=== PATIENT | female | born 1990 | race American Indian/Alaskan Native ===

== ENCOUNTER 2017-04-29 07:15 | Day surgery (SDC) | payer BC ==
[~2017-04-29] VITALS: Ht 157.5 cm; Wt 64.4 kg
[~2017-04-29 07:15] MED LIST: BCP'S
[2017-04-29] MEDS ORDERED: ORTHO TRI-CYCL1 EACH PO (07:30)
--- NOTE | 2017-04-29 09:02 | NUR ---
04/29/17 0902 Evelyn Gonzalez 0857 PATIENT ARRIVES TO PACU SLEEPING, OPENS EYES TO VERBAL STIMULI, ANSWERS QUESTIONS APPROPRIATELY, THEN BACK TO SLEEP. RESP EVEN AND UNLABORED. NC AT 3 LITERS.
--- NOTE | 2017-05-02 08:11 | OR ---
[facility] [address] [place], [place] [address] Signed DATE OF OPERATION: 04/29/2017 SURGEON: Gio Harvey MD PREOPERATIVE DIAGNOSIS: Rectal bleeding. POSTOPERATIVE DIAGNOSIS: Proctocolitis (distal sigmoid colon and rectum) PROCEDURE: Colonoscopy with cold biopsies in the cecum, right colon, transverse colon, 35 cm, 25 cm, and upper middle and distal rectum. ESTIMATED BLOOD LOSS: None. INDICATIONS: Pamela is a 26-year-old female, who has had rectal bleeding particularly with bowel movements the last 6 to 7 months. She said it is not every day, but it has been increasing in frequency. It is causing her more and more issues particular at work. She said there is no pain. There is no constipation, no diarrhea. Her guaiac test was positive. Therefore, she was asked to see me for colonoscopy. In the office, I gave Pamela a pamphlet on colonoscopy and we looked at that together along with the risks including, but not limited to, gas bloating, crampy abdominal pain, bleeding, perforation, requiring surgery, and missed diagnosis. We also discussed the need for IV conscious sedation. She had expressed understanding and wished to proceed. PROCEDURE NOTE: Pamela was taken into our endoscopy suite and placed in the left lateral decubitus position. She was given divided doses of 7 mg of Versed and 175 mcg of fentanyl. A digital rectal exam was performed and this was unremarkable. The adult colonoscope was inserted and we immediately encountered mild diffuse erythema starting at the anus and traveling up through the rectum. We took biopsies in the distal middle and upper rectum. The scope was then passed around the rectosigmoid junction and into the sigmoid colon. It also had similar inflammatory changes. As we traveled up into the left colon, those changes disappeared and the mucosa looked normal all around to the cecum. Her prep was quite excellent. We could see the ileocecal valve and appendiceal orifice. We made several attempts to pass the scope into the ileum without success. We then took our biopsies randomly as we withdrew the scope through the colon in the cecum, Electronically Signed By: GIO HARVEY MD 05/02/17 0811 PATIENT NAME: PAMELA DUDLEY OPERATIVE REPORT DATE OF : 89 PHYSICIAN: GIO HARVEY MD REPORT #: [id number] REPORT IS CONFIDENTIAL AND NOT TO BE RELEASED WITHOUT AUTHORIZATION [facility] [address] [place] [id number] Signed right colon, transverse colon, 35 cm and 25 cm. We also took pictures throughout for photodocumentation. Pamela's slight of build and we had just enough room to retroflex the scope and we could not see too much other than some mild inflammation in the distal portion of the rectum. After this, the gas was suctioned out and the colonoscope removed. Pamela tolerated the procedure quite well. RECOMMENDATIONS: I will see Pamela back in my office in 7 to 14 days to review her results. Gio Harvey MD ALB/MODL /[id number] cc: KIMBERLY Lancaster MD Electronically Signed By: GIO HARVEY MD 05/02/17810 PATIENT NAME: PAMELA DUDLEY Joanna OPERATIVE REPORT DATE OF : 89 PHYSICIAN: GIO HARVEY MD REPORT #: [id number] REPORT IS CONFIDENTIAL AND NOT TO BE RELEASED WITHOUT AUTHORIZATION
== END 2017-04-29 09:30 | disposition home or self-care (01) ==
LOC: DS 07:15 → OPS 07:15 → DS 08:15 → OPS 08:15
PROVIDERS: Colon & Rectal Surgery
PROC: 0DBE8ZX Excision of Large Intestine, Via Natural or Artificial Opening Endoscopic, Diagnostic (ICD-10-PCS; 2017-04-29)
PROC: 0DBL8ZX Excision of Transverse Colon, Via Natural or Artificial Opening Endoscopic, Diagnostic (ICD-10-PCS; 2017-04-29)
PROC: 0DBP8ZX Excision of Rectum, Via Natural or Artificial Opening Endoscopic, Diagnostic (ICD-10-PCS; 2017-04-29)
PROC: 0DBF8ZX Excision of Right Large Intestine, Via Natural or Artificial Opening Endoscopic, Diagnostic (ICD-10-PCS; 2017-04-29)
PROC: 0DBH8ZX Excision of Cecum, Via Natural or Artificial Opening Endoscopic, Diagnostic (ICD-10-PCS; principal; 2017-04-29 08:15)
DX: K51.211 Ulcerative (chronic) proctitis with rectal bleeding (principal); Z79.899 Other long term (current) drug therapy
CPT/HCPCS: 84703; 99153; G0500; J2250; J3010; J7120

== ENCOUNTER 2019-08-30 08:05 | Inpatient (IN) | payer OTHER ==
[~2019-08-30] VITALS: Ht 132.1 cm; Wt 75.0 kg
--- NOTE | ~2019-08-30 | OR ---
[facility] [address] [place], [place] [address] Draft DATE OF OPERATION: 08/30/2019 SURGEON: Rell Chacon DO PREOPERATIVE DIAGNOSES: 1. Term intrauterine . 2. Active labor. 3. Breech presentation. POSTOPERATIVE DIAGNOSES: 1. Term intrauterine . 2. Active labor. 3. Breech presentation. PROCEDURE PERFORMED: Primary low transverse delivery. REWINDER OPERATOR HELPER: Jeana Esquivel MD ESTIMATED BLOOD LOSS: 500 mL. FINDINGS: Viable female , 6 pounds 1 ounc with Apgars of 9 and 9. Born in a babatunde breech position. Normal uterus, tubes, and ovaries. ANESTHESIA: Spinal. COMPLICATIONS: None. INDICATIONS: Ms. Dudley is a very pleasant 29-year-old, G1, P0, who presents to Labor and Delivery complaining of contractions increasing in frequency and intensity. She is admitted to Labor and delivery. The patient quickly advanced to 8 cm dilated with a large bulge back. Artificial rupture of membranes was performed and at that point, it was noted the baby was in the babatunde breech presentation. Decision was made to proceed with primary low transverse delivery. Risks, benefits, and alternatives were discussed in PATIENT NAME: KEHINDE DUDLEY OPERATIVE REPORT DATE OF : [birth year] REPORT #: [id number] PHYSICIAN: RELL CHACON DO PCP: OLMAN ABRAHAM REPORT IS CONFIDENTIAL AND NOT TO BE RELEASED WITHOUT AUTHORIZATION [facility] [address] [place], [place] [address] Draft detail with the patient. The patient understands and wished to proceed with the procedure. TECHNIQUE: The patient was taken to the operating room, where a time-out was performed to confirm correct patient and correct procedure. Spinal anesthetic was adequately established. The patient was prepped and draped in the supine position with a bump under the right hip. Ancef 2 g were given preoperatively and no preop heparin was indicated. Once spinal was noted to be adequate, a Pfannenstiel skin incision was made 2 cm above the pubic symphysis and the incision was extended to the fascia. Fascia was nicked in the midline and fascial incision was extended bilaterally using blunt dissection. The fascia was grasped with Heaven's, elevated, and the underlying rectus muscles dissected off bluntly and sharply. Rectus muscles were divided in the midline and peritoneum was entered bluntly. Peritoneal incision was extended using blunt dissection and the lower uterine segment was identified. Chalo self retractor was placed and hysterotomy was performed using a surgical scalpel. Amniotic fluid was noted to be cleared. The buttocks were easily delivered with the assistance of fundal pressure and the baby was delivered up to the axilla. The anterior shoulder was swept medially and delivered. The baby was rotated to swept medially and the arm delivered. The baby was then rotated occiput anterior. The head flexed and rotated. The baby easily delivered. The was vigorous and cried and the cord was doubly clamped and cut. Cord blood obtained for routine analysis. The placenta was manually expressed, intact with . Uterus was cleared of any remaining products of conception was given per protocol. hysterotomy was repaired using 0 Vicryl in 2 layers with good hemostasis. Normal uterus, tubes, and ovaries. After the pelvis was irrigated and found to be hemostatic. Peritoneum was reapproximated using 2-0 Vicryl. Rectus was hemostatic and reapproximated with 0 Vicryl in a loose and using 0 Vicryl in a running nonlocked manner. Rell Chacon DO JDW/MODL /[id number] Copies: PATIENT NAME: KEHINDE DUDLEY OPERATIVE REPORT DATE OF : [birth year] REPORT #: [id number] PHYSICIAN: RELL CHACON DO PCP: OLMAN ABRAHAM REPORT IS CONFIDENTIAL AND NOT TO BE RELEASED WITHOUT AUTHORIZATION [address] [place] [address] Draft ~ PATIENT NAME: KEHINDE DUDLEY OPERATIVE REPORT DATE OF : [birth year] REPORT #: [id number] PHYSICIAN: RELL CHACON DO PCP: OLMAN ABRAHAM REPORT IS CONFIDENTIAL AND NOT TO BE RELEASED WITHOUT AUTHORIZATION
[~2019-08-30 08:05] MED LIST changes: +ORTHO TRI-CYCL1 EACH PO
--- NOTE | 2019-08-30 12:22 | PR ---
[facility] [address] [facility] [place], [place] [address] Signed Progress Notes IP Datetime Report Generated by CPN: 08/30/2019 12:22 PROGRESS NOTES: [id number] Impression: Normal progression of labor Plan: Continue present management Other Plans: Pt considering epidural VITAL SIGNS: [id number] Vital Signs: Reviewed; Within Normal Limits EXAM: [id number] Dilatation: 4.5 Effacement: 100 Station: -3 Uterine Contractions: Not tracing well MEMBRANES: [id number] Comments: Pt seen and evaluated. RN just checked cervix and pt getting in tub. Considering epidural in the near future. Reviewed labor and anticipated course. Pt will likely get epidural soon and then consider AROM. All questions answered Fetus A: [id number] FHR Baseline: 140 Variability: Moderate 6-25bpm Accelerations: None Decelerations: None FHR Category: Category I Presentation: Vertex Comments on Fetus A: No evidence of metabolic acidosis Fetus B: [id number] Signing Physician: Rell Chacon DO Copies: ~ *Electronically Signed* 08/30/19 1222 RELL CHACON DO PATIENT NAME: TRACEY DUDLEYISTI CHIP PROGRESS NOTE DATE OF : 89 PHYSICIAN: RELL CHACON DO RPT #: [id number] REPORT IS CONFIDENTIAL AND NOT TO BE RELEASED WITHOUT AUTHORIZATION
--- NOTE | 2019-08-30 14:40 | PR ---
[facility] [facility] [address] [place], [place] [address] Signed Progress Notes IP Datetime Report Generated by IVY: 08/30/2019 14:40 PROGRESS NOTES: [id number] Impression: Normal progression of labor; Reassuring heart rate Procedures: Artificial ROM; Sterile Vag Exam; Ultrasound Plan: Deliver- Section Other Plans: Pt considering epidural Informed Consent Obtain: Section Delivery; Risks, Benefits and Alternatives Discussed VITAL SIGNS: [id number] Vital Signs: Reviewed; Within Normal Limits EXAM: [id number] Dilatation: 8.0 Effacement: 100 Station: -3 Uterine Contractions: q 2-3 MEMBRANES: [id number] Comments: Pt seen and examined. Pt requested epidural which was kindly placed by anesthesia. Pt now much more comfortable w/ contractions. Discussed AROM. Large bulging membranes noted. Presenting part well applied. AROM then performed without difficulty for large amount clear fluid. Immediately on rupture, it was noted that presenting part is buttocks. US was performed that confirmed breech presentation. Reviewed recommendation for primary C/S for breech presentation. Pt understands and agrees. Consents signed. Reviewed risks/benefits and alternatives. All questions answered to best of my ability and to pts apparent understanding. Reviewed that pt would be an excellent candidate for in the future. Fetus A: [id number] FHR Baseline: 150 Variability: Moderate 6-25bpm Accelerations: None Decelerations: None FHR Category: Category I Presentation: Breech Comments on Fetus A: No evidence of metabolic acidosis Fetus B: [id number] Signing Physician: Rell D. Chacon, DO Copies: *Electronically Signed* 08/30/19 1440 CHACON,RELL Reese DO PATIENT NAME: KEHINDE DUDLEY PROGRESS NOTE DATE OF : [birth year] PHYSICIAN: RELL CHACON DO RPT #: [id number] REPORT IS CONFIDENTIAL AND NOT TO BE RELEASED WITHOUT AUTHORIZATION [facility] [address] [place], [place] [address] Signed ~ *Electronically Signed* 08/30/19 144 CHACON,RELL Reese DO PATIENT NAME: KEHINDE DUDLEY PROGRESS NOTE DATE OF : [birth year] PHYSICIAN: RELL CHACON DO RPT #: [id number] REPORT IS CONFIDENTIAL AND NOT TO BE RELEASED WITHOUT AUTHORIZATION
--- NOTE | 2019-08-30 15:53 | NUR ---
08/30/19 1553 Jeanine Juarez 1541-PATIENT ARRIVED TO ROOM 105 FOR PACU AWAKE DENIES PAIN OR NAUSEA. REPORTS "TIRED". RA RR EVEN IVF INFUSING 20 PITOCIN WITH LR TO LEFT HAND CDI. SPINAL LEVEL AT T7. BROWN CATHETER DRAINING CLEAR YELLOW URINE. SR. AT BEDSIDE. FUNDUS AT UMBILICUS FIRM LIGHT RUBRA DRAINAGE. 1552-BABY TO PATIENTS BREAST FBC WALTER ALMAGUER AT BEDSIDE ASSISTING.
--- NOTE | 2019-08-31 08:57 | PR ---
[facility] [address] [facility] [place], [place] [address] Signed PP Progress Notes Datetime Report Generated by CPN: 08/31/2019 08:57 SUBJECTIVE: [id number] Pain: Within normal limits Nausea/Vomiting: Denies Flatus: Yes Vital Signs: [id number] Vital Signs: Reviewed; Within Normal Limits EXAM: [id number] Cardiovascular: Normal Respiratory: Normal Abdomen/Uterus: Normal Lochia: Normal Vulva/Perineum: Not Done Breasts: Not Done CVA Tenderness: Normal Extremities: Normal Incision: Normal Progress: Normal Exam Comments: Incision well healing. Fundus firm U-2 IMPRESSION/PLAN/PROCEDURES: [id number] Impression: Normal progression Plan: Continue present management Progress Notes: Pt seen and examined. Doing well. Lowry cath in place and has not yet ambulated. Tolerating diet. Pain and lochia minimal. well. No fevers/chills or other concerns. Hgb 10.6. Anticipate d/c home tomorrow Signing Physician: Rell Chacon DO Copies: ~ *Electronically Signed* 08/31/19 0857 RELL CHACON DO PATIENT NAME: KEHINDE DUDLEY PROGRESS NOTE DATE OF : [birth year] PHYSICIAN: RELL CHACON DO RPT #: [id number] REPORT IS CONFIDENTIAL AND NOT TO BE RELEASED WITHOUT AUTHORIZATION
--- NOTE | 2019-09-01 07:42 | PR ---
[facility] [address] [facility] [place], [place] [address] Signed PP Progress Notes Datetime Report Generated by CPN: 09/01/2019 07:42 SUBJECTIVE: [id number] Pain: Within normal limits Nausea/Vomiting: Denies Flatus: Yes Vital Signs: [id number] Vital Signs: Reviewed EXAM: [id number] Cardiovascular: Normal Respiratory: Normal Abdomen/Uterus: Normal Lochia: Normal Vulva/Perineum: Not Done Breasts: Not Done CVA Tenderness: Normal Extremities: Normal Incision: Normal Progress: Normal Exam Comments: Fundus firm U-2 nontender incision healing well. IMPRESSION/PLAN/PROCEDURES: [id number] Impression: Normal progression Plan: Remove elizabeth; Discharge Progress Notes: Pt seen and examined. Doing well. Ambulating, voiding, and tolerating full diet. Pain and lochia minimal. well. No fevers/chills or other concerns. Reviewed d/c instructions in detail. Signing Physician: Rell Chacon DO Copies: ~ *Electronically Signed* 09/01/19 0742 RELL CHACON DO PATIENT NAME: LUIS ENRIQUE,KEHINDE CHIP PROGRESS NOTE DATE OF : [birth year] PHYSICIAN: RELL CHACON DO RPT #: [id number] REPORT IS CONFIDENTIAL AND NOT TO BE RELEASED WITHOUT AUTHORIZATION
== END 2019-09-01 13:15 | disposition home or self-care (01) | DRG 788 ==
LOC: FBCO 08:05 → FBC 09:20 → FBCO 09-08 08:35
PROVIDERS: ADMIT Obstetrics & Gynecology
PROC: 10907ZC Drainage of Amniotic Fluid, Therapeutic from Products of Conception, Via Natural or Artificial Opening (ICD-10-PCS; 2019-08-30)
PROC: 00HU33Z Insertion of Infusion Device into Spinal Canal, Percutaneous Approach (ICD-10-PCS; 2019-08-30)
PROC: 3E0R3BZ Introduction of Anesthetic Agent into Spinal Canal, Percutaneous Approach (ICD-10-PCS; 2019-08-30)
PROC: 10D00Z1 Extraction of Products of Conception, Low, Open Approach (ICD-10-PCS; principal; 2019-08-30 15:00)
DX: O32.1XX0 Maternal care for breech presentation, not applicable or unspecified (principal); Z3A.38 38 weeks gestation of pregnancy; Z37.0 Single live birth; O99.284 Endocrine, nutritional and metabolic diseases complicating childbirth; E55.9 Vitamin D deficiency, unspecified; Z86.19 Personal history of other infectious and parasitic diseases
CPT/HCPCS: 01961; 36415; 85027; A9270; J0690; J1885; J2001; J2274; J2300; J2370; J2405; J2590; J2795; J3010; J7121

== ENCOUNTER 2023-04-30 07:10 | Day surgery (SDC) | payer BC, OTHER ==
[~2023-04-30] VITALS: Ht 157.5 cm; Wt 65.9 kg
[~2023-04-30 07:10] MED LIST changes: +CEFAZOLIN SODIUM 2 GM/20 ML SYR IV SCH; +IBLOOD GLUCOSE TEST STRIP 1 EA TEST VI PRN; +KETOROLAC TROMETHAMINE 30 MG/ML VIAL ONE; +LACTATED RINGER'S 1,000 ML IV SCH; +LIDOCAINE HCL 1% 5 ML SDV INJ ONE
[2023-04-30 07:31] VITALS: BP 112/81
--- NOTE | 2023-04-30 07:47 | NUR ---
NO ONE WAITING BALTAZAR TO COME LATER.
[2023-04-30] MEDS ORDERED: LIDOCAINE HCL 2% 5 ML SDV ONE (07:59)
[2023-04-30] MEDS ORDERED: propofoL 200 MG/20 ML VIAL ONE (07:59)
[2023-04-30] MEDS ORDERED: MIDAZOLAM HCL 2 MG/2 ML VIAL ONE (08:00)
[2023-04-30] MEDS ORDERED: ondansetron HCL 4 MG/2 ML VIAL ONE (08:00)
[2023-04-30] MEDS ORDERED: KETOROLAC TROMETHAMINE 30 MG/ML VIAL ONE (08:00)
--- NOTE | 2023-04-30 08:24 | NUR ---
DR HAYES IN TO TALK WITH PT AND CALIN VALLADARES.
[2023-04-30] MEDS ORDERED: HYDROCODONE/ACETA 5/325 TAB PO PRN (08:30)
[2023-04-30] MEDS ORDERED: ACETAMINOPHEN 1,000 MG/100 ML VIAL ONE (08:45)
[2023-04-30] MEDS ORDERED: CELECOXIB200 MG PO (09:10)
[2023-04-30] MEDS ORDERED: HYDROCODON-ACE1 EA10 PO (09:10)
--- NOTE | 2023-04-30 09:19 | NUR ---
04/30/23 0919 Kellen Caldwell 0904 PT TO PACU SLEEPING, O2 VIA MASK FOGGING NOTED IN MASK.
[2023-04-30 09:37] VITALS: BP 101/72
--- NOTE | 2023-04-30 09:42 | NUR ---
NO ONE IN WAITING.
--- NOTE | 2023-04-30 10:47 | NUR ---
AMB TO [facility] WELL. VOIDS QS REQUESTS TO GO HOME.
--- NOTE | 2023-04-30 10:49 | NUR ---
HAS EATEN CRACKERS AND DRANK 200MLS WATER PRIOR TO PAIN MEDICINE.
--- NOTE | 2023-04-30 11:00 | NUR ---
imelda hasnt shown up yet. continues to wait and has called him several times.
[2023-04-30] MEDS ORDERED: CELECOXIB 200 MG CAP PO SCH (17:00)
--- NOTE | 2023-05-03 07:03 | OR ---
[facility] [address] [place], [place] [address] Signed DATE OF OPERATION: 04/30/2023 SURGEON: Teja Caldwell MD PREOPERATIVE DIAGNOSIS: Lateral meniscus tear, right knee. POSTOPERATIVE DIAGNOSIS: Lateral meniscus tear, right knee. PROCEDURE PERFORMED: Right knee arthroscopy with partial lateral meniscectomy. RESIDENTIAL AIDE: None. ANESTHESIA: General. BLOOD LOSS: Minimal. BRIEF HISTORY: Pamela is a 32-year-old female with pain and locking in her knee. MRI was consistent with a small posterolateral meniscus tear. Risks, benefits, and alternatives of surgery were discussed with her she elected to proceed. DESCRIPTION OF PROCEDURE: Once consent was obtained she was taken to the operating room after adequate anesthesia she was placed on the operating table. The left leg was flexed abducted and externally rotated on a well-padded leg patel. Right was placed in a well-padded leg patel with no tourniquet. The leg was then prepped and draped in the standard sterile fashion. The portal sites were injected using 0.25% Marcaine with epinephrine. Standard inferolateral and superolateral portals were made and the scope was introduced in the knee. ARTHROSCOPIC FINDINGS: Knee had some moderate synovitis particularly anteriorly and anterolaterally. The medial compartment was intact. Patellofemoral compartment was intact. ACL and PCL were intact. The lateral compartment showed good chondral surfaces. There was actually a Electronically Signed By: TEJA CALDWELL MD 05/03/23 0703 PATIENT NAME: PAMELA DUDLEY OPERATIVE REPORT DATE OF : [birth year] REPORT #: [id number] PHYSICIAN: TEJA CALDWELL MD PCP: CARLOS GRIJALVA REPORT IS CONFIDENTIAL AND NOT TO BE RELEASED WITHOUT AUTHORIZATION [facility] [address] [place] [id number] Signed large posterolateral meniscus tear extending from the mid posterior portion to the mid lateral border. There was a large undersurface flap that was unstable. DESCRIPTION OF OPERATION: The standard inferomedial portal was made after localization using a spinal needle. Straight and curved biters were then used to trim the meniscus tear back to a stable rim. The large flap on the undersurface was removed. The anterior and posterior margins were then smoothed using the shaver. The scope was then withdrawn. Portals were closed with 3-0 nylon and the knee was injected with 60 mg of Toradol. The wounds were dressed with Adaptic, ABD, and Dariusz wrap. She tolerated the procedure well. All sponge, needle, and instrument counts were correct. Teja Caldwell MD BA/ETTA /[id number] Copies: ~ Electronically Signed By: TEJA CALDWELL MD 05/03/23 0703 PATIENT NAME: PAMELA DUDLEY OPERATIVE REPORT DATE OF : [birth year] REPORT #: [id number] PHYSICIAN: TEJA CALDWELL MD PCP: CARLOS GRIJALVA REPORT IS CONFIDENTIAL AND NOT TO BE RELEASED WITHOUT AUTHORIZATION
== END 2023-04-30 10:40 | disposition home or self-care (01) ==
LOC: DS 07:10
PROVIDERS: ATTEND Specialist
PROC: 0SBC4ZZ Excision of Right Knee Joint, Percutaneous Endoscopic Approach (ICD-10-PCS; principal; 2023-04-30 08:45)
DX: S83.281A Other tear of lateral meniscus, current injury, right knee, initial encounter (principal); X58.XXXA Exposure to other specified factors, initial encounter
CPT/HCPCS: 01400; 84703; J0131; J0690; J1885; J2001; J2250; J2405; J2704; J7121

== ENCOUNTER 2024-04-11 08:55 | Emergency (ER) | payer OTHER ==
[~2024-04-11] VITALS: Ht 157.5 cm; Wt 65.3 kg
[~2024-04-11 08:55] MED LIST changes: -CEFAZOLIN SODIUM 2 GM/20 ML SYR IV SCH; +CELECOXIB200 MG PO; +HYDROCODON-ACE1 EA10 PO; -IBLOOD GLUCOSE TEST STRIP 1 EA TEST VI PRN; -KETOROLAC TROMETHAMINE 30 MG/ML VIAL ONE; -LACTATED RINGER'S 1,000 ML IV SCH; -LIDOCAINE HCL 1% 5 ML SDV INJ ONE
[2024-04-11 09:41] LABS: BASOPHILS 0.4 % (0-2); EOSINOPHILS 0.2 % (0-6); HEMATOCRIT 36.9 % (35.0-50.0); HEMOGLOBIN 12.6 g/dL (12.0-18.0); LYMPHOCYTES 10.3 % (24-44); MCH 27.5 (27-36); MCHC 34.1 g/dl (30-36); MCV 80.6 fl (81-99); MONOCYTES 3.9 % (0-12); NEUTROPHILS 85.2 % (39-80); PLATELET COUNT 370 K/uL (140-440); RBC 4.58 M/ul (4.3-5.7); RDW 15.1 (10.5-15.0)
[2024-04-11] MEDS ORDERED: ondansetron HCL 4 MG TAB PO ONE (09:45)
[2024-04-11] MEDS ORDERED: ONDANSETRON 4 MG TAB ODT SL ONE (09:45)
[2024-04-11 09:56] LABS: ALBUMIN 3.3 g/dL (3.4-5.0); ALBUMIN/GLOBULIN RATIO 0.8 (1.1-2.4); ANION GAP 10.8 (7-21); BILIRUBIN, TOTAL 0.6 ng/dL (0.2-1.0); BUN/CREATININE RATIO 6.66 (6.0-28.6); CALCIUM 8.5 mg/dL (8.5-10.1); CREATININE, SERUM 0.75 mg/dL (0.55-1.02); POTASSIUM 3.8 mmol/L (3.5-5.1); PROTEIN, TOTAL 7.4 g/dL (6.4-8.2)
[2024-04-11 10:26] LABS: BILIRUBIN, URINE POSITIVE (negative); BLOOD/HGB, URINE NEGATIVE (Negative); KETONE, URINE >=80 (Negative); LEUK ESTERASE, URINE NEGATIVE (negative); NITRITE, URINE NEGATIVE (negative); PH, URINE 6.5 (5-7)
[2024-04-11] MEDS ORDERED: HYDROCODON-ACE1 EA10 PO (10:58)
[2024-04-11] MEDS ORDERED: ONDANSETRON ODT4 MG PO (10:58)
[2024-04-11 11:08] VITALS: BP 109/67
== END 2024-04-11 11:09 | disposition home or self-care (01) ==
LOC: ED 08:55
PROVIDERS: Emergency Medicine
DX: O34.81 Maternal care for other abnormalities of pelvic organs, first trimester (principal); N83.202 Unspecified ovarian cyst, left side; Z3A.01 Less than 8 weeks gestation of pregnancy; Z79.899 Other long term (current) drug therapy
CPT/HCPCS: 36415; 76705; 76801; 76817; 80053; 81003; 83690; 84702; 84703; 85025; 99284-25; A9270